=== PATIENT | female | born 1985 | race African-American/Black ===

== ENCOUNTER 2024-04-09 10:20 | Emergency (ER) | payer SELFPAY ==
[2024-04-09] MEDS ORDERED: Ibuprofen 200 MG TAB ONE (11:35)
[2024-04-09] MEDS ORDERED: Ventolin HFA Inhaler 60 PUFF INHALER ONE (11:36)
== END 2024-04-09 11:53 | disposition home or self-care (01) ==
LOC: CSHERS 10:20
DX: J02.9 Acute pharyngitis, unspecified (principal); F17.210 Nicotine dependence, cigarettes, uncomplicated
CPT/HCPCS: 71045; 87081; 87430; 93005; 93010

== ENCOUNTER 2024-11-26 16:42 | Emergency (ER) | payer SELFPAY ==
[2024-11-26] MEDS ORDERED: Ketorolac Tromethamine 30 MG (1 mL) VIAL ONE (17:40)
== END 2024-11-26 17:47 | disposition home or self-care (01) ==
LOC: CSHERS 16:42
DX: M76.62 Achilles tendinitis, left leg (principal); F17.210 Nicotine dependence, cigarettes, uncomplicated
CPT/HCPCS: 96372; 99283; J1885